=== PATIENT | female | born 1970 ===

== ENCOUNTER 2017-03-05 09:13 | Emergency (ER) | payer MEDICAID ==
[2017-03-05 09:13] VITALS: BMI 22.6
[2017-03-05 09:25] VITALS: RESP 16; TEMP 98.3; O2SAT 98
--- NOTE | 2017-03-05 09:57 | C.PDOC ---
History Of Present Illness 46 yr old female presents to the ER s/p dig bite to the right ear. Patient states she may have hugged the dog too tightly and the dog bit her. Patient states the dog is her own and its UTD on shots. Denies hearing loss or neck pain. 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 PS MAY HAVE HUGGED DOG TOO TIGHTLY AND DOG BIT HER. PT OWNS THE DOG, SHOTS UTD. NO OTHER ASSOC SX EXAM NAD HEENT R EAR +SWELL AURICULAR AREA NO GROSS HEMATOMA. +LAC BEHIND HELIX W MIN ACTIVE BLEEDING. NO PROTRUDING CARTILAGE. SMALL ABRASION HELIX FRONT OF EAR REMAINDER NEG Time Seen by Provider: 03/05/17 09:47 Chief Complaint (Nursing): Bite History Per: Patient History/Exam Limitations: no limitations Onset/Duration Of Symptoms: Sudden Onset (STATISTICIAN THEORETICAL) Past Medical History Reviewed: Historical Data, Nursing Documentation, Vital Signs Vital Signs: Last Vital Signs Temp 98.3 F 03/05/17 09:24 Pulse 77 03/05/17 09:24 Resp 16 03/05/17 09:24 BP 112/72 03/05/17 09:24 Pulse Ox 98 03/05/17 10:58 - Medical History PMH: Anxiety, Depression, Post Traumatic Stress Disorder Family History: States: No Known Family Hx - Social History Hx Alcohol Use: No Hx Substance Use: No - Immunization History Hx Tetanus Toxoid Vaccination: No Hx Influenza Vaccination: No Hx Pneumococcal Vaccination: No Review Of Systems Except As Marked, All Systems Reviewed And Found Negative. ENT: Positive for: Other ((+) Dog bite on right ear) Musculoskeletal: Negative for: Neck Pain Physical Exam - Physical Exam Appears: Non-toxic, No Acute Distress Skin: Warm, Dry, No Rash Head: Atraumatic, Normacephalic Eye(s): bilateral: Normal Inspection, PERRL, EOMI Ear(s): Left: Normal, Right: Other (+ Swelling to auricular area. No gross hematoma. + Laceration behind helix with minimal bleeding. No protruding cartilage. Small abrasion to the helix, front of ear. ) Oral Mucosa: Moist Extremity: Normal ROM, No Swelling Neurological/Psych: Oriented x3, Normal Speech ED Course And Treatment O2 Sat by Pulse Oximetry: 98 (RA ) Pulse Ox Interpretation: Normal Procedure: Wound Repair - Time Performed Time Performed: 10:56 - Time Out Time Out: Side verified, Site verified, Patient ID confirmed - Consent Obtained Consent obtained: Verbal - Indications Indication(s):: Laceration - Wound Examination Wound Examination:: Edema - Debris Debris:: None - Wound repair method Abbie:: Steri-strips - Muscle repiar layer closed with Muscle repair layer closed with:: Tetanus ordered - Patient tolerated procedure Patient Tolerated Procedure:: Well Progress - Re-Evaluation Re-evaluation Note: 03/05/17 10:33 D/W DR HU AWARE OF ER FINDINGS, ADVISES REFERRAL TO PLASTICS FOR BELT GLASS SANDER FOLLOW UP. 03/05/17 10:[address] JACK OFFICE DR JACK IS NOT SU[employer]E [employer]ER TODAY FOR PLASTICS 03/05/17 10:55 D/W DR [facility] [employer] AGREES W PLAN, FU OFFICE PT AGREES W PLAN. OTC PAIN RX, ICE FU PLASTICS - Continuity of Care Discussed pt. case with spa consultant/specialty: Otolaryngology, Plastic Surgery Medical Decision Making Medical Decision Making: PLAN: * Augmentin PO * Zofran PO * Percocet PO * Tetanus IM Disposition Counseled Patient/Family Regarding: Diagnosis, Need For Followup, Rx Given - Disposition Referrals: Reece Hernandez MD [Staff Provider] - Disposition: HOME/ ROUTINE Disposition Time: 10:57 Condition: IMPROVED Prescriptions: Amoxicillin/Clavulanate [Augmentin 875 MG-125 MG] 1 tab PO BID #14 tab Instructions: Animal Bite (ED) Forms: Work Excuse - Clinical Impression Clinical Impression: Dog bite - Scribe Statement The provider has reviewed the documentation as recorded by the Donnell Feng Provider Attestation: All medical record entries made by the Donnell were at my direction and personally dictated by me. I have reviewed the chart and agree that the record accurately reflects my personal performance of the history, physical exam, medical decision making, and the department course for this patient. I have also personally directed, reviewed, and agree with the discharge instructions and disposition.
[2017-03-05] MEDS ORDERED: Amoxicillin-Clav 875-125 mg Tab PO STA (09:58)
[2017-03-05] MEDS ORDERED: Tetanus/Diphtheria Toxoids 0.5 ml Syringe IM ONE ×2 (09:58→10:21)
[2017-03-05] MEDS ORDERED: Oxycodone/Acetaminophen 5/325 mg Tab PO STA (09:58)
[2017-03-05] MEDS ORDERED: Oxycodone/Acetaminophen 5/325 mg Tab ONE (10:20)
[2017-03-05] MEDS ORDERED: Amoxicillin-Clav 875-125 mg Tab PO ONE (10:20)
[2017-03-05 11:24] VITALS: BP 105/69; PULSE 75
== END 2017-03-05 11:52 | disposition home or self-care (01) ==
LOC: C.ER 09:13
DX: S01.351A Open bite of right ear, initial encounter (principal); W54.0XXA Bitten by dog, initial encounter; Y92.009 Unspecified place in unspecified non-institutional (private) residence as the place of occurrence of the external cause